=== PATIENT | male | born 1980 | race Caucasian/White ===

== ENCOUNTER 2019-01-29 19:38 | Emergency (ER) | payer OTHER ==
[~2019-01-29] VITALS: Ht 157.5 cm; Wt 84.0 kg
[2019-01-29 19:51] VITALS: BP 138/90
--- NOTE | 2019-01-29 20:15 | NUR ---
PT AMBULATED TO BED 12.
--- NOTE | 2019-01-29 20:15 | NUR ---
38 Y/O MALE PRESENTS TO ED, C/O L EYE SHARP PAIN 12/24. PT STATES A NAIL FELL ON HIS EYE LAST SATURDAY. PT WENT TO URGENT CARE AND WAS RX ERYTHROMICIN. PT CONTINUES TO C/O PAIN. L EYE HAS REDNESS. PT HAS NO MEDICAL HX. PT VSS. ERMD AWARE. WILL CONTINUE TO MONITOR.
[2019-01-29] MEDS ORDERED: TETRACAINE HCL/PF 0.5% OPTH 4 ML BTL OP ONE (20:20)
[2019-01-29] MEDS ORDERED: FLUORESCEIN OPTH STRIP 0.6 MG OP ONE (20:20)
[2019-01-29 21:15] VITALS: BP 127/87
--- NOTE | 2019-01-29 21:23 | NUR ---
PT DISCHARGED WITH PAPERWORK. RX VISINE OPHTHALMIC SOLUTION. EDUCATED PT REGARDING MEDICATION AND SIDE EFFECTS. EDUCATED PT REGARDING DISCHARGE DIAGNOSIS. PT VERBALIZED UNDERSTANDING OF TEACHING. TOLD PT TO FOLLOW UP WITH PCP AND WHEN TO RETURN TO ED. PT VSS. ALL QUESTIONS ANSWERED.
== END 2019-01-29 21:23 | disposition home or self-care (01) ==
LOC: MED 19:38
DX: H11.32 Conjunctival hemorrhage, left eye (principal)
CPT/HCPCS: 99283